=== PATIENT | male | born 1955 | race Caucasian/White ===

== ENCOUNTER 2016-12-21 07:01 | Observation (INO) | payer OTHER ==
[2016-12-21] VITALS (12 sets, daily range): BP systolic 153–209; BP diastolic 82–100; PULSE 71–85; RESP 16–19; TEMP 97.8–98.5; O2SAT 95–98
[~2016-12-21] VITALS: Ht 160 cm; Wt 91.0 kg
[2016-12-21] MEDS ORDERED: SODIUM CHLORIDE 0.9% FLUSH 10 ML FLUSH IVF PRN (07:30)
[2016-12-21 07:45] LABS: BASOPHIL % 0.4 % (0.0-2.0); EOSINOPHIL # 0.1 TH/MM3 (0-0.4); EOSINOPHIL % 1.2 % (0.0-4.0); HEMATOCRIT 45.8 % (39.0-51.0); HEMO FLAGS DIFF FINAL; LYMPH % 14.8 % (9.0-44.0); LYMPHOCYTE # 1.4 TH/MM3 (1.0-4.8); MEAN CELL VOLUME 88.5 FL (80.0-100.0); MEAN CORPUSCULAR HEMOGLOBIN 31.1 PG (27.0-34.0); MEAN CORPUSCULAR HGB CONC 35.2 % (32.0-36.0); MONO % 6.9 % (0.0-8.0); NEUT % 76.7 % (16.0-70.0); PLATELET COUNT 229 TH/MM3 (150-450); RED BLOOD COUNT 5.18 MIL/MM3 (4.50-5.90); RED CELL DISTRIBUTION WIDTH 13.4 % (11.6-17.2); WHITE BLOOD COUNT 9.2 TH/MM3 (4.0-11.0)
[2016-12-21 07:52] LABS: APTT (PATIENT) 23.3 SEC (24.3-30.1); PROTHROMBIN TIME - PATIENT 10.7 SEC (9.8-11.6)
[2016-12-21 07:54] LABS: ALT (GPT) 56 U/L (12-78); ANION GAP 8 MEQ/L (5-15); AST (GOT) 22 U/L (15-37); BICARBONATE 26.4 MEQ/L (21.0-32.0); BLOOD UREA NITROGEN 18 MG/DL (7-18); CHLORIDE 107 MEQ/L (98-107); GLOMERULAR FILTRATION RATE 57 ML/MIN (>89); POTASSIUM 3.5 MEQ/L (3.5-5.1); SODIUM (NA) 141 MEQ/L (136-145)
[2016-12-21 07:58] LABS: ALKALINE PHOSPHATASE 53 U/L (45-117); CREATINE KINASE 142 U/L (39-308); TOTAL BILIRUBIN ADULT 0.6 MG/DL (0.2-1.0)
--- NOTE | 2016-12-21 08:04 | RADRPT ---
EXAM DATE/TIME: 12/21/2016 07:35 [facility] COMPARISON: No previous studies available for comparison. INDICATIONS : Right sided arm and leg weakness RADIATION DOSE: 56.35 CTDIvol (mGy) MEDICAL HISTORY : None SURGICAL HISTORY : None. ENCOUNTER: Initial ACUITY: 1 day PAIN SCALE: 0/10 LOCATION: cranial TECHNIQUE: Multiple contiguous axial images were obtained of the head. Using automated exposure control and adj ustment of the mA and/or kV according to patient size, radiation dose was kept as low as reasonably a chievable to obtain optimal diagnostic quality images. DICOM format image data is available electro nically for review and comparison. FINDINGS: CEREBRUM: The ventricles are normal for age. No evidence of midline shift, mass lesion, hemorrhage or acute in farction. No extra-axial fluid collections are seen. POSTERIOR FOSSA: The cerebellum and brainstem are intact. The 4th ventricle is midline. The cerebellopontine angle i s unremarkable. EXTRACRANIAL: The visualized portion of the orbits is intact. SKULL: The calvaria is intact. No evidence of skull fracture. CONCLUSION: 1. No evidence of acute intracranial pathology. No masses are identified. Juan Pablo Mcfarland MD on December 21, 2016 at 7:59 Board Certified Radiologist. This report was verified electronically.
[2016-12-21] MEDS ORDERED: ASPIRIN 325 MG TAB PO ONE (08:15)
--- NOTE | 2016-12-21 08:25 | RADRPT ---
EXAM DATE/TIME: 12/21/2016 08:14 [facility] COMPARISON: No previous studies available for comparison. INDICATIONS : Shortness of breath and right sided weakness. MEDICAL HISTORY : Hypertension. SURGICAL HISTORY : None. ENCOUNTER: Initial ACUITY: 1 day PAIN SCORE: 0/10 LOCATION: Bilateral chest FINDINGS: A single view of the chest demonstrates the lungs to be symmetrically aerated without evidence of mas s, infiltrate or effusion. The cardiomediastinal contours are unremarkable. Osseous structures are intact. CONCLUSION: 1. No acute cardiopulmonary disease. Juan Pablo Mcfarland MD on December 21, 2016 at 8:23 Board Certified Radiologist. This report was verified electronically.
[2016-12-21] MEDS ORDERED: SODIUM CHLOR 0.9% 1000 ML INJ 1,000 ML IV SCH (09:11)
[2016-12-21] MEDS ORDERED: SODIUM CHLORIDE 0.9% FLUSH 10 ML FLUSH IV FLUSH PRN (09:15)
[2016-12-21] MEDS ORDERED: 1/2 NS + KCL 20 MEQ INJ 1,000 ML IV SCH (09:15)
[2016-12-21] MEDS ORDERED: ONDANSETRON HCL 4 MG/2 ML VIAL IVP PRN (09:15)
[2016-12-21] MEDS ORDERED: ACETAMINOPHEN 325 MG TAB PO PRN (09:15)
[2016-12-21] MEDS ORDERED: NALOXONE HCL 0.4 MG/ML AMP IV PUSH PRN (09:15)
[2016-12-21] MEDS ORDERED: MAGNESIUM HYDROXIDE SUSP 30 ML CUP PO PRN (09:15)
[2016-12-21] MEDS ORDERED: BISACODYL 10 MG SUPP RECTAL PRN (09:15)
--- NOTE | 2016-12-21 09:55 | HHI.HP ---
HPI Service [facility] Primary Care Physician Dr. Brian Snow Admission Diagnosis TIA Chief Complaint: Right sided weakness Travel History International Travel<30 Days: No Contact w/Intl Traveler <30 Da: No Traveled to Known Affected Are: No History of Present Illness This is a 60-year-old patient with a past medical history which includes hypertension resolved after weight loss no longer on medication. Patient reports he has not yet met his PCP Dr. Brian Snow and in fact has not been to a doctor, "in awhile." Patient reports he was in his normal state of health this morning despite her chest is normal. Once patient was at work he began to home right sided weakness causing him to fall. Patient denies head trauma or LOC. Right sided weakness lasted approximately 30 mins then spontaneously resolved. Patient has no residual symptoms at this time. Patient denies headache, slurred speech, facial droop, changes in vision, chest pain, shortness of breath, N/V, constipation, diarrhea, fevers or chills. Review of Systems Constitutional: DENIES: Fatigue, Fever, Chills Eyes: DENIES: Blurred vision, Diplopia, Vision loss Respiratory: DENIES: Cough, Sputum production, Shortness of breath Cardiovascular: DENIES: Chest pain, Palpitations, Dyspnea on Exertion, Lower Extremity Edema Gastrointestinal: DENIES: Abdominal pain, Constipation, Diarrhea Neurologic: COMPLAINS OF: Abnormal gait, Localized weakness, Poor Balance, DENIES: Headache, Seizures, Speech Problems Psychiatric: DENIES: Anxiety, Confusion, Depression Past Family Social History Past Medical History hypertension resolved after weight loss no longer on medication Past Surgical History denies prior surgery Reported Medications Does not take home medications Allergies: Coded Allergies: No Known Allergies (Unverified , 12/21/16) Active Ordered Medications Current Medications Medications (Trade) Dose Ordered Sig/Mariaelena Route Start Time Stop Time Status Last Admin (NS Flush) 2 ml UNSCH PRN IVF 12/21/16 07:30 12/21/16 07:33 Sodium Chloride 1,000 ml @ 100 mls/hr Q10H IV 12/21/16 09:11 UNV (NS Flush) 2 ml UNSCH PRN IV FLUSH 12/21/16 09:15 UNV (NS Flush) 2 ml BID IV FLUSH 12/21/16 21:00 UNV (Tylenol) 650 mg Q4H PRN PO 12/21/16 09:15 UNV (Zofran Inj) 4 mg Q6H PRN IVP 12/21/16 09:15 UNV (Narcan Inj) 0.4 mg UNSCH PRN IV PUSH 12/21/16 09:15 UNV (Sabra-Colace) 1 tab BID PO 12/21/16 21:00 UNV (Milk Of Magnesia Liq) 30 ml Q12H PRN PO 12/21/16 09:15 UNV (Dulcolax Supp) 10 mg DAILY PRN RECTAL 12/21/16 09:15 UNV Potassium Chloride/Sodium Chloride 1,000 ml @ 70 mls/hr [id number] IV 12/21/16 09:15 UNV (Aspirin) 325 mg DAILY PO 12/22/16 09:00 UNV Family History Mother and father are both alive in their 80s, father has BPH and hypertension. Patient denies family medical history including diabetes CVA or heart disease Social History Lives with his mother and father are in the 80s Denies ETOH use Denies tobacco use now or in the past Denies illicit drug use Physical Exam Vital Signs Vital Signs Date Time Temp Pulse Resp B/P (MAP) Pulse Ox O2 Delivery O2 Flow Rate FiO2 12/21/16 07:28 76 17 178/97 (124) 98 Room Air 12/21/16 07:27 17 98 Room Air 12/21/16 07:18 84 18 98 Room Air 12/21/16 07:11 98.1 84 17 204/100 (134) 97 Physical Exam GENERAL: This is a well-nourished, well-developed patient, in no apparent distress. SKIN: small abrasion right lower extremity HEAD: Atraumatic. Normocephalic. No temporal or scalp tenderness. EYES: Extraocular motions intact. No scleral icterus. No injection or drainage. ENT: Nose without bleeding, purulent drainage or septal hematoma. Throat without erythema, tonsillar hypertrophy or exudate. Uvula midline. Airway patent. NECK: Trachea midline. No JVD or lymphadenopathy. Supple, nontender, no meningeal signs. CARDIOVASCULAR: Regular rate and rhythm, with murmur present 2/6. Right carotid bruit noted RESPIRATORY: Clear to auscultation. Breath sounds equal bilaterally. No wheezes , rales, or rhonchi. GASTROINTESTINAL: Abdomen soft, non-tender, nondistended. No hepato-splenomegaly , or palpable masses. No guarding. MUSCULOSKELETAL: Extremities without clubbing, cyanosis, or edema. No joint tenderness, effusion, or edema noted. No calf tenderness. Negative Homans sign bilaterally. NEUROLOGICAL: Awake and alert. Cranial nerves II through XII intact. No focal deficits at this time. Motor and sensory grossly within normal limits. Five out of 5 muscle strength in all muscle groups. Normal speech. Laboratory Laboratory Tests Test 12/21/16 07:20 White Blood Count 9.2 Red Blood Count 5.18 Hemoglobin 16.1 Hematocrit 45.8 Mean Corpuscular Volume 88.5 Mean Corpuscular Hemoglobin 31.1 Mean Corpuscular Hemoglobin Concent 35.2 Red Cell Distribution Width 13.4 Platelet Count 229 Mean Platelet Volume 8.0 Neutrophils (%) (Auto) 76.7 Lymphocytes (%) (Auto) 14.8 Monocytes (%) (Auto) 6.9 Eosinophils (%) (Auto) 1.2 Basophils (%) (Auto) 0.4 Neutrophils # (Auto) 7.0 Lymphocytes # (Auto) 1.4 Monocytes # (Auto) 0.6 Eosinophils # (Auto) 0.1 Basophils # (Auto) 0.0 CBC Comment DIFF FINAL Differential Comment Prothrombin Time 10.7 Prothromb Time International Ratio 1.0 Activated Partial Thromboplast Time 23.3 Blood Urea Nitrogen 18 Creatinine 1.27 Random Glucose 114 Total Protein 7.3 Albumin 3.7 Calcium Level 8.5 Alkaline Phosphatase 53 Aspartate Amino Transf (AST/SGOT) 22 Alanine Aminotransferase (ALT/SGPT) 56 Total Bilirubin 0.6 Sodium Level 141 Potassium Level 3.5 Chloride Level 107 Carbon Dioxide Level 26.4 Anion Gap 8 Estimat Glomerular Filtration Rate 57 Total Creatine Kinase 142 Troponin I LESS THAN 0.02 Result Diagram: 12/21/1671912/21/16719 Caprini VTE Risk Assessment Caprini VTE Risk Assessment: No/Low Risk (score <= 1) Caprini Risk Assessment Model Point Value = 1 Point Value = 2 Point Value = 3 Point Value = 5 Age 41-60 Minor surgery BMI > 25 kg/m2 Swollen legs Varicose veins or History of unexplained or recurrent spontaneous Oral contraceptives or hormone replacement Sepsis (< 1 month) Serious lung disease, including pneumonia (< 1 month) Abnormal pulmonary function Acute myocardial infarction Congestive heart failure (< 1 month) History of inflammatory bowel disease Medical patient at bed rest Age 61-74 Arthroscopic surgery Major open surgery (> 45 min) Laparoscopic surgery (> 45 min) Malignancy Confined to bed (> 72 hours) Immobilizing plaster cast Central venous access Age >= 75 History of VTE Family history of VTE Factor V Leiden Prothrombin [id number] Lupus anticoagulant Anticardiolipin antibodies Elevated serum homocysteine Heparin-induced thrombocytopenia Other congenital or acquired thrombophilia Stroke (< 1 month) Elective arthroplasty Hip, pelvis, or leg fracture Acute spinal cord injury (< 1 month) Prophylaxis Regimen Total Risk Factor Score Risk Level Prophylaxis Regimen 0-1 Low Early ambulation 2 Moderate Order ONE of the following: *Sequential Compression Device (SCD) *Heparin 5000 units SQ BID 3-4 Higher Order ONE of the following medications: *Heparin 5000 units SQ TID *Enoxaparin/Lovenox 40 mg SQ daily (WT < 150 kg, CrCl > 30 mL/min) *Enoxaparin/Lovenox 30 mg SQ daily (WT < 150 kg, CrCl > 10-29 mL/min) *Enoxaparin/Lovenox 30 mg SQ BID (WT < 150 kg, CrCl > 30 mL/min) AND/OR *Sequential Compression Device (SCD) 5 or more Highest Order ONE of the following medications: *Heparin 5000 units SQ TID (Preferred with Epidurals) *Enoxaparin/Lovenox 40 mg SQ daily (WT < 150 kg, CrCl > 30 mL/min) *Enoxaparin/Lovenox 30 mg SQ daily (WT < 150 kg, CrCl > 10-29 mL/min) *Enoxaparin/Lovenox 30 mg SQ BID (WT < 150 kg, CrCl > 30 mL/min) AND *Sequential Compression Device (SCD) Assessment and Plan Problem List: (1) Unilateral weakness ICD Codes: R53.1 - Weakness Plan: Unilateral weakness TIA vs CVA 61-year-old male patient with remote history of hypertension no longer on medication right-sided weakness which lasted for 30 minutes and has resolved CT of the chest reviewed and reveals no evidence of acute intracranial pathology Aspirin 325 mg given in emergency department will continue daily Ultrasound bilateral carotid arteries ordered and pending Bedrest for today Permissive hypertension up to 220/110 initially- MRI reviewed and reveals no evidence of acute intracranial pathology. No masses are identified, old lacunar infarct in the brainstem Will start to control BP - Start Lisinopril 10 mg BID Clonidine PRN IV fluids one half normal saline with 20 of K at 74 hour- DC'd continuous telemetry monitoring Serial neuro checks PT consult Lipid profile in a.m. Hypertension patient has remote history of hypertension on medication Initial blood pressure 204/100 Allow permissive hypertension up to 220/110 monitor blood pressure DVT prophylaxis with SCDs (2) TIA (transient ischemic attack) ICD Codes: G45.9 - Transient cerebral ischemic attack, unspecified (3) HTN (hypertension) ICD Codes: I10 - Essential (primary) hypertension Assessment and Plan Patient examined. Assessment and plan formulated with Fernanda Adams PA-C. I agree with the above. presented with TIA sx's and sudden ride sided weakness that resolved spontaneously. severe htn on presentation. not treated and not checked for many years. mri/a negative for acute cva and carotid u/s no obstruction echo and telemetry overnight. start bp meds and titrate. ASA started. will need close f/u. Fernanda Adams Dec 21, 2016 09:55 Gt Wren MD Dec 21, 2016 18:04
--- NOTE | 2016-12-21 10:05 | PD ---
HPI Chief Complaint: Fall Time Seen by Provider: 07:19 Travel History International Travel<30 days: No Contact w/Intl Traveler<30days: No Traveled to known affect area: No History of Present Illness HPI 61-year-old male patient presents to the ER today because he states that he went to work and started not feeling well, dizzy, weak, had right sided weakness and fell to the right side. He states he had trouble using the right side for some time but he states that the symptoms are now clear. He denies any headaches, vomiting, chest pains, shortness of breath, or any other symptoms. He denies any previous issues at this. Modifying Factors: None Associated Signs & Symptoms: Right sided weakness, dizziness, weak, fall Risk Factors: None PFSH Past Medical History Medical History: Denies Significant Hx Diminished Hearing: No Tetanus Vaccination: > 5 Years Influenza Vaccination: No Past Surgical History Surgical History: No Previous Surgery Family History Family Myocardial Infarction: Yes Social History Alcohol Use: No Tobacco Use: No Substance Use: No Allergies-Medications (Allergen,Severity, Reaction): Coded Allergies: No Known Allergies (Unverified , 12/21/16) Reported Meds & Prescriptions Reported Meds & Active Scripts Active No Active Prescriptions or Reported Medications Review of Systems Except as stated in HPI: all other systems reviewed are Neg Physical Exam Narrative GENERAL: Well-developed elderly white male patient currently in mild distress. Awake and oriented 3. SKIN: Focused skin assessment warm/dry. HEAD: Atraumatic. Normocephalic. EYES: Pupils equal and round. No scleral icterus. No injection or drainage. ENT: No nasal bleeding or discharge. Mucous membranes pink and moist. NECK: Trachea midline. No JVD. CARDIOVASCULAR: Regular rate and rhythm. No murmur appreciated. RESPIRATORY: No accessory muscle use. Clear to auscultation. Breath sounds equal bilaterally. GASTROINTESTINAL: Abdomen soft, non-tender, nondistended. Hepatic and splenic margins not palpable. MUSCULOSKELETAL: No obvious deformities. No clubbing. No cyanosis. No edema. NEUROLOGICAL: Awake and alert. No obvious cranial nerve deficits. Motor grossly within normal limits. Normal speech. No pronator drift. PSYCHIATRIC: Appropriate mood and affect; insight and judgment normal. Data Data Last Documented VS Vital Signs Date Time Temp Pulse Resp B/P (MAP) Pulse Ox O2 Delivery O2 Flow Rate FiO2 12/21/16 07:28 76 17 178/97 (124) 98 Room Air 12/21/16 07:11 98.1 Orders Orders Electrocardiogram (12/21/16 07:19) Prothrombin Time / Inr (Pt) (12/21/16 07:19) Act Partial Throm Time (Ptt) (12/21/16 07:19) Complete Blood Count With Diff (12/21/16 07:19) Comprehensive Metabolic Panel (12/21/16 07:19) Creatine Kinase (Cpk) (12/21/16 07:19) Drug Screen, Random Urine (12/21/16 07:19) Troponin I (12/21/16 07:19) Urinalysis - C+S If Indicated (12/21/16 07:19) Ct Brain W/O Iv Contrast(Rout) (12/21/16 07:19) Chest, Single Ap (12/21/16 07:19) Ecg Monitoring (12/21/16 07:19) Iv Access Insert/Monitor (12/21/16 07:19) Oximetry (12/21/16 07:19) Sodium Chloride 0.9% Flush (Ns Flush) (12/21/16 07:30) Aspirin (Aspirin) (12/21/16 08:15) Admit Order (Ed Use Only) (12/21/16 08:42) Labs Laboratory Tests Test 12/21/16 07:20 White Blood Count 9.2 TH/MM3 Red Blood Count 5.18 MIL/MM3 Hemoglobin 16.1 GM/DL Hematocrit 45.8 % Mean Corpuscular Volume 88.5 FL Mean Corpuscular Hemoglobin 31.1 PG Mean Corpuscular Hemoglobin Concent 35.2 % Red Cell Distribution Width 13.4 % Platelet Count 229 TH/MM3 Mean Platelet Volume 8.0 FL Neutrophils (%) (Auto) 76.7 % Lymphocytes (%) (Auto) 14.8 % Monocytes (%) (Auto) 6.9 % Eosinophils (%) (Auto) 1.2 % Basophils (%) (Auto) 0.4 % Neutrophils # (Auto) 7.0 TH/MM3 Lymphocytes # (Auto) 1.4 TH/MM3 Monocytes # (Auto) 0.6 TH/MM3 Eosinophils # (Auto) 0.1 TH/MM3 Basophils # (Auto) 0.0 TH/MM3 CBC Comment DIFF FINAL Differential Comment Prothrombin Time 10.7 SEC Prothromb Time International Ratio 1.0 RATIO Activated Partial Thromboplast Time 23.3 SEC Blood Urea Nitrogen 18 MG/DL Creatinine 1.27 MG/DL Random Glucose 114 MG/DL Total Protein 7.3 GM/DL Albumin 3.7 GM/DL Calcium Level 8.5 MG/DL Alkaline Phosphatase 53 U/L Aspartate Amino Transf (AST/SGOT) 22 U/L Alanine Aminotransferase (ALT/SGPT) 56 U/L Total Bilirubin 0.6 MG/DL Sodium Level 141 MEQ/L Potassium Level 3.5 MEQ/L Chloride Level 107 MEQ/L Carbon Dioxide Level 26.4 MEQ/L Anion Gap 8 MEQ/L Estimat Glomerular Filtration Rate 57 ML/MIN Total Creatine Kinase 142 U/L Troponin I LESS THAN 0.02 NG/ML [facility] Medical Decision Making Medical Screen Exam Complete: Yes Emergency Medical Condition: Yes Medical Record Reviewed: Yes Interpretation(s) EKG shows NSR, no ST elevation or depression, and no arrhythmias. No significant T-wave inversions. Laboratory Tests Test 12/21/16 07:20 Neutrophils (%) (Auto) 76.7 % (16.0-70.0) Activated Partial Thromboplast Time 23.3 SEC (24.3-30.1) Random Glucose 114 MG/DL (74-106) Estimat Glomerular Filtration Rate 57 ML/MIN (>89) Troponin I LESS THAN 0.02 NG/ML Differential Diagnosis TIA versus metabolic issues versus intracranial injuries versus dysrhythmias Narrative Course Vital signs are stable in the ER except for hypertension. His blood pressure came down on its own. His EKG did not show significant signs of dysrhythmias. Metabolic panel is unremarkable. Patient's neurological symptoms have completely resolved by the time they're in the ER. CAT scan returns not show any signs of acute intracranial issues and aspirin was given in the ER. Case was then discussed with Dr. Wren for admission. Diagnosis Primary Impression: TIA (transient ischemic attack) Additional Impressions: Unilateral weakness HTN (hypertension) Admitting Information Admitting Physician Requests: Admit Scripts No Active Prescriptions or Reported Meds Bereket Phan MD Dec 21, 2016 10:05
--- NOTE | 2016-12-21 10:37 | RADRPT ---
EXAM DATE/TIME: 12/21/2016 09:56 [facility] COMPARISON: No previous studies available for comparison. INDICATIONS : Transient ischemic attack. MEDICAL HISTORY : Transient ischemic attack. SURGICAL HISTORY : None. ENCOUNTER: Initial ACUITY: 1 day PAIN SCORE: 2/10 LOCATION: Bilateral neck PEAK SYSTOLIC VELOCITIES (cm/sec): ICA/CCA RATIO: Right: 1.0 Left: 1.1 ICA: Right: 86 Left: 98 CCA: Right: 87 Left: 89 ECA: Right: 91 Left: 97 VERTEBRAL: Right: 76 antegrade Left: 56 antegrade Elevated flow velocities and ICA/CCA ratios have been found to correlate with increased degrees of vessel stenosis, calculated as percentage of diameter relative to a normal segment of distal ICA/CCA FINDINGS: Ultrasound of the carotid arteries was performed bilaterally using real-time Doppler and color Dopple r imaging. Examination of the right carotid artery demonstrates mild fibrous plaque within the bifurcation. No w aveform abnormalities are identified and no spectral broadening is seen. Examination of the left simental tid artery demonstrates mild fibrous plaque within the bulb. No waveform abnormalities are identified and no spectral broadening is seen. There is antegrade flow in both vertebral arteries. CONCLUSION: No evidence of hemodynamically significant lesion. Juan Pablo Mcfarland MD on December 21, 2016 at 10:35 Board Certified Radiologist. This report was verified electronically.
--- NOTE | 2016-12-21 14:11 | RADRPT ---
EXAM DATE/TIME: 12/21/2016 13:44 [facility] COMPARISON: No previous studies available for comparison. INDICATIONS : CVA. Right sided weakness for one day. Syncopal episode today. MEDICAL HISTORY : None. SURGICAL HISTORY : None. ENCOUNTER: Initial ACUITY: 1 day PAIN SCORE: 0/10 LOCATION: cranial TECHNIQUE: Multiplanar, multisequence MRI of the brain was performed without contrast. FINDINGS: MRI of the brain is performed in sagittal, axial and coronal planes. The craniocervical junction and midline structures are unremarkable. Diffusion weighted images demonstrate no abnormality. There is n o evidence of acute cortical infarction, acute hemorrhage, mass effect or midline shift is seen. Ther e is periventricular hyperintensity on the T2 weighted images consistent with small vessel vascular d isease slightly more than expected in a patient of this age. There is a small old lacunar infarct inv olving the angel at the level of the superior cerebellar peduncle Posterior fossa structures are unrem arkable. CONCLUSION: 1. No evidence of acute intracranial pathology. No masses are identified. Old lacunar infarct in the brainstem Juan Pablo Mcfarland MD on December 21, 2016 at 14:09 Board Certified Radiologist. This report was verified electronically.
--- NOTE | 2016-12-21 14:16 | RADRPT ---
EXAM DATE/TIME: 12/21/2016 13:44 [facility] COMPARISON: MRI BRAIN W/O CONTRAST, December 21, 2016, 13:44. INDICATIONS : CVA. Right sided weakness for one day. Syncopal episode today. MEDICAL HISTORY : None. SURGICAL HISTORY : None. ENCOUNTER: Initial ACUITY: 1 day PAIN SCORE: 0/10 LOCATION: cranial Please note a normal MRA of the brain does not entirely exclude the possibility of a small aneurysm, nor the possibility of distal intracranial vessel disease. TECHNIQUE: 3D time of flight MRA was performed. Source images, multiplanar STS MIP, and 3D volume MIP reconstru ctions were reviewed. FINDINGS: Anterior circulation: Distal intracranial internal carotid arteries are patent with flow extending to the middle and anteri or cerebral arteries. There is no evidence for aneurysm, vessel truncation or stenosis, and no eviden ce for vascular malformation. Posterior circulation: Symmetric distal vertebral arteries with flow extending to basilar artery. Hypoplastic/aplastic P-co mms. There is no evidence for aneurysm, vessel truncation or stenosis, and no evidence for vascular m alformation. CONCLUSION: 1. Unremarkable MRA examination of the head. Specifically no evidence for large vessel occlusion or s ignificant stenosis, as questioned. Ulisses Fuentes MD on December 21, 2016 at 14:11 Board Certified Radiologist. This report was verified electronically.
--- NOTE | 2016-12-21 16:44 | ECHRPT ---
Indication: CVA/TIA CONCLUSIONS Normal left ventricular size. Mild concentric left ventricular hypertrophy. The left ventricular systolic function is hyperdynamic with an estimated ejection fraction in the ra nge of 65- 70%. There is trace tricuspid valve regurgitation. Normal estimated pulmonary pressures. BP: / HR: Rhythm: Sinus MEASUREMENTS (Male / Female) Normal Values Technical Quality:Fair 2D ECHO LV Diastolic Diameter PLAX 5.2 cm 4.2 - 5.9 / 3.9 - 5.3 cm LV Systolic Diameter PLAX 3.7 cm IVS Diastolic Thickness 1.0 cm 0.6 - 1.0 / 0.6 - 0.9 cm LVPW Diastolic Thickness 1.0 cm 0.6 - 1.0 / 0.6 - 0.9 cm LV Relative Wall Thickness 0.4 LVOT Diameter 1.7 cm Aortic Root Diameter 2.5 cm M-MODE AV Cusp Separation MM 2.2 cm DOPPLER AV Peak Velocity 121.0 cm/s AV Peak Gradient 5.9 mmHg AV Mean Gradient 3.0 mmHg AV Velocity Time Integral 20.4 cm LVOT Peak Velocity 108.0 cm/s LVOT Peak Gradient 4.7 mmHg LVOT Velocity Time Integral 20.4 cm AV Area Cont Eq vti 2.3 cm AV Area Cont Eq pk 2.0 cm Mitral E Point Velocity 62.7 cm/s Mitral A Point Velocity 44.9 cm/s Mitral E to A Ratio 1.4 LV E' Lateral Velocity 7.1 cm/s Mitral E to LV E' Lateral Ratio 8.8 LV E' Septal Velocity 5.9 cm/s Mitral E to LV E' Septal Ratio 10.5 TR Peak Velocity 225.0 cm/s TR Peak Gradient 20.3 mmHg Right Atrial Pressure 10.0 mmHg Pulmonary Artery Systolic Pressu 30.3 mmHg Right Ventricular Systolic Press 30.3 mmHg PV Peak Velocity 63.9 cm/s PV Peak Gradient 1.6 mmHg FINDINGS LEFT VENTRICLE Normal left ventricular size. Mild concentric left ventricular hypertrophy. The left ventricular systolic function is hyperdynamic with an estimated ejection fraction in the ra nge of 65- 70%. TRICUSPID VALVE There is trace tricuspid valve regurgitation. Normal estimated pulmonary pressures. Brendan Park MD (Electronically Signed) Final Date:21 December 2016 16:43
[2016-12-21] MEDS ORDERED: cloNIDine HCL 0.1 MG TAB PO PRN (16:45)
[2016-12-21] MEDS: LISINOPRIL 10 MG TAB PO SCH (17:46)
--- NOTE | 2016-12-21 19:21 | EKG ---
Date Performed: 12/21/2016 Time Performed: 07:10:06 PTAGE: 61 years EKG: Sinus rhythm SEPTAL MYOCARDIAL INFARCTION ABNORMAL ECG NO PREVIOUS TRACING DOCTOR: Lars Aguirre Interpretating Date/Time 12/21/2016 19:19:57
[2016-12-21] MEDS: DOCUSATE SODIUM 50 MG/SENNA 8.6 MG TAB PO SCH (21:00)
[2016-12-21] MEDS ORDERED: LISINOPRIL 10 MG TAB PO SCH (21:00)
[2016-12-21] MEDS: SODIUM CHLORIDE 0.9% FLUSH 10 ML FLUSH IV FLUSH SCH (21:01)
[2016-12-22] VITALS (7 sets, daily range): BP systolic 161–170; BP diastolic 83–89; PULSE 66–83; RESP 18–19; TEMP 98.2–98.4; O2SAT 95–96
[2016-12-22] MEDS: LISINOPRIL 10 MG TAB PO SCH (08:29)
[2016-12-22] MEDS: DOCUSATE SODIUM 50 MG/SENNA 8.6 MG TAB PO SCH (08:30)
[2016-12-22] MEDS: SODIUM CHLORIDE 0.9% FLUSH 10 ML FLUSH IV FLUSH SCH (08:30)
[2016-12-22] MEDS ORDERED: ASPIRIN 325 MG TAB PO SCH (09:00)
--- NOTE | 2016-12-22 09:05 | HHI.PR ---
Subjective Remarks Patient awake and alert, reports he had an uneventful night offers no specific complaints Objective Vitals Vital Signs Date Time Temp Pulse Resp B/P (MAP) Pulse Ox O2 Delivery O2 Flow Rate FiO2 12/22/16 07:43 98.3 68 18 170/83 (112) 96 12/22/16 07:37 96 21 12/22/16 05:06 21 12/22/16 04:00 72 12/22/16 03:51 98.2 71 18 161/85 (110) 96 12/22/16 00:00 66 12/21/16 23:30 98.2 71 18 153/82 (105) 95 12/21/16 20:52 178/88 (118) 170/88 (115) 12/21/16 20:10 83 12/21/16 19:24 98.3 85 18 209/91 (130) 97 12/21/16 16:28 98.5 78 19 197/96 (129) 97 12/21/16 15:35 97.8 78 17 184/93 (123) 98 12/21/16 12:26 97.8 80 16 186/92 (123) 98 Room Air 12/21/16 10:58 97.8 72 17 183/94 (123) 98 Room Air 12/21/16 09:39 97.8 82 17 196/96 (129) 98 Room Air Result Diagram: 12/21/16 0720 12/21/16 0720 Other Results Laboratory Tests Test 12/21/16 07:20 White Blood Count 9.2 TH/MM3 Red Blood Count 5.18 MIL/MM3 Hemoglobin 16.1 GM/DL Hematocrit 45.8 % Mean Corpuscular Volume 88.5 FL Mean Corpuscular Hemoglobin 31.1 PG Mean Corpuscular Hemoglobin Concent 35.2 % Red Cell Distribution Width 13.4 % Platelet Count 229 TH/MM3 Mean Platelet Volume 8.0 FL Neutrophils (%) (Auto) 76.7 % Lymphocytes (%) (Auto) 14.8 % Monocytes (%) (Auto) 6.9 % Eosinophils (%) (Auto) 1.2 % Basophils (%) (Auto) 0.4 % Neutrophils # (Auto) 7.0 TH/MM3 Lymphocytes # (Auto) 1.4 TH/MM3 Monocytes # (Auto) 0.6 TH/MM3 Eosinophils # (Auto) 0.1 TH/MM3 Basophils # (Auto) 0.0 TH/MM3 CBC Comment DIFF FINAL Differential Comment Prothrombin Time 10.7 SEC Prothromb Time International Ratio 1.0 RATIO Activated Partial Thromboplast Time 23.3 SEC Blood Urea Nitrogen 18 MG/DL Creatinine 1.27 MG/DL Random Glucose 114 MG/DL Total Protein 7.3 GM/DL Albumin 3.7 GM/DL Calcium Level 8.5 MG/DL Alkaline Phosphatase 53 U/L Aspartate Amino Transf (AST/SGOT) 22 U/L Alanine Aminotransferase (ALT/SGPT) 56 U/L Total Bilirubin 0.6 MG/DL Sodium Level 141 MEQ/L Potassium Level 3.5 MEQ/L Chloride Level 107 MEQ/L Carbon Dioxide Level 26.4 MEQ/L Anion Gap 8 MEQ/L Estimat Glomerular Filtration Rate 57 ML/MIN Total Creatine Kinase 142 U/L Troponin I LESS THAN 0.02 NG/ML Imaging Last Impressions Head CT 12/21/16718 Signed Impressions: Service Date/Time: Wednesday, December 21, 2016 07:35 - CONCLUSION: 1. No evidence of acute intracranial pathology. No masses are identified. Juan Pablo Mcfarland MD Chest X-Ray 12/21/16718 Signed Impressions: Service Date/Time: Wednesday, December 21, 2016 08:14 - CONCLUSION: 1. No acute cardiopulmonary disease. Juan Pablo Mcfarland MD Head Magnetic Resonance Angiography 12/21/16 Signed Impressions: Service Date/Time: Wednesday, December 21, 2016 13:44 - CONCLUSION: 1. Unremarkable MRA examination of the head. Specifically no evidence for large vessel occlusion or significant stenosis, as questioned. Ulisses Fuentes MD Carotid Artery Ultrasound 12/21/16 Signed Impressions: Service Date/Time: Wednesday, December 21, 2016 09:56 - CONCLUSION: No evidence of hemodynamically significant lesion. Juan Pablo Mcfarland MD Brain MRI 12/21/16 Signed Impressions: Service Date/Time: Wednesday, December 21, 2016 13:44 - CONCLUSION: 1. No evidence of acute intracranial pathology. No masses are identified. 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 SKIN: small abrasion right lower extremity and RUE- healing CARDIOVASCULAR: Regular rate and rhythm, with murmur present 2/6. Right carotid bruit noted RESPIRATORY: Clear to auscultation. Breath sounds equal bilaterally. No wheezes , rales, or rhonchi. GASTROINTESTINAL: Abdomen soft, non-tender, nondistended. No hepato-splenomegaly , or palpable masses. No guarding. MUSCULOSKELETAL: Extremities without clubbing, cyanosis, or edema. No joint tenderness, effusion, or edema noted. No calf tenderness. Negative Homans sign bilaterally. NEUROLOGICAL: Awake and alert. No focal deficits appreciated. No focal deficits at this time. Motor and sensory grossly within normal limits. Five out of 5 muscle strength in all muscle groups. Normal speech. A/P Problem List: (1) Unilateral weakness ICD Codes: R53.1 - Weakness Plan: Unilateral weakness TIA vs HTN urgency 61-year-old male patient with remote history of hypertension no longer on medication right-sided weakness which lasted for 30 minutes and has resolved CT of the chest reviewed and reveals no evidence of acute intracranial pathology Aspirin 325 mg given in emergency department will continue aspirin daily Ultrasound bilateral carotid arteries reviewed and reveals examination of the right coronary artery demonstrates mild fibrous plaque within the bifurcation segment of the left carotid artery demonstrates mild fibrous plaque within the bulb. No evidence of hemodynamically significant lesion Initially bedrest with head of bed flat 12/22/2016 activity changed him out of bed with assistance Permissive hypertension up to 220/110 initially- MRI reviewed and reveals no evidence of acute intracranial pathology. No masses are identified, old lacunar infarct in the brainstem control BP - continue Lisinopril 10 mg BID Clonidine PRN IV fluids one half normal saline with 20 of K at 74 hour- DC'd continuous telemetry monitoring reviewed no events noted Serial neuro checks Evaluation by physical therapy recommends home with no home health physical therapy Lipid profile pending Hypertension patient has remote history of hypertension on medication Initial blood pressure 204/100 control BP - continue Lisinopril 10 mg BID Clonidine PRN monitor blood pressure DVT prophylaxis with SCDs DC patient home in stable condition on a heart healthy diet to follow up with PCP. Prescription given for Lisinopril 20 mg PO BID and aspirin 81 mg daily (2) TIA (transient ischemic attack) ICD Codes: G45.9 - Transient cerebral ischemic attack, unspecified (3) HTN (hypertension) ICD Codes: I10 - Essential (primary) hypertension Assessment and Plan Patient examined. Assessment and plan formulated with Fernanda Adams PA-C. I agree with the above. TIA sx with severe htn urgency. No evidence of afib or acute cva on imaging. Pt sx's resolved prior to arrival titrate bp meds. asa. he want to go home. f/u pcp. echo no thrombus noted. Fernanda Adams Dec 22, 2016 09:05 Gt Wren MD Dec 22, 2016 14:49
[2016-12-22] MEDS ORDERED: LISI-515 PO (09:07)
[2016-12-22] MEDS ORDERED: ASPI81TA11 PO (09:07)
--- NOTE | 2016-12-22 09:08 | HHI.DCPOC ---
Discharge Care Plan Diagnosis: (1) Hypertensive urgency (2) Unilateral weakness Goals to Promote Your Health * To prevent worsening of your condition and complications * To maintain your health at the optimal level Directions to Meet Your Goals Take your medications as prescribed Follow your dietary instruction Follow activity as directed Keep your appointments as scheduled Take your immunizations and boosters as scheduled If your symptoms worsen call your PCP, if no PCP go to Urgent Care Center or Emergency Room Smoking is Dangerous to Your Health. Avoid second hand smoke Call the 24-hour hour crisis hotline for domestic abuse at Fernanda Adams Dec 22, 2016 09:08
[2016-12-22 10:42] LABS: AUTOMATED NEUTROPHIL # 6.3 TH/MM3 (1.8-7.7); BASOPHIL % 0.3 % (0.0-2.0); EOSINOPHIL # 0.1 TH/MM3 (0-0.4); EOSINOPHIL % 0.9 % (0.0-4.0); HEMATOCRIT 47.3 % (39.0-51.0); HEMO FLAGS DIFF FINAL; LYMPH % 16.1 % (9.0-44.0); LYMPHOCYTE # 1.4 TH/MM3 (1.0-4.8); MEAN CORPUSCULAR HEMOGLOBIN 30.9 PG (27.0-34.0); MEAN CORPUSCULAR HGB CONC 34.3 % (32.0-36.0); MONO % 7.9 % (0.0-8.0); NEUT % 74.8 % (16.0-70.0); PLATELET COUNT 228 TH/MM3 (150-450); RED BLOOD COUNT 5.25 MIL/MM3 (4.50-5.90); RED CELL DISTRIBUTION WIDTH 14.2 % (11.6-17.2); WHITE BLOOD COUNT 8.5 TH/MM3 (4.0-11.0)
[2016-12-22 11:08] LABS: ANION GAP 10 MEQ/L (5-15); BICARBONATE 24.4 MEQ/L (21.0-32.0); BLOOD UREA NITROGEN 17 MG/DL (7-18); CHLORIDE 105 MEQ/L (98-107); GLOMERULAR FILTRATION RATE 66 ML/MIN (>89); POTASSIUM 3.4 MEQ/L (3.5-5.1); SODIUM (NA) 139 MEQ/L (136-145)
[2016-12-22 11:14] LABS: HDL CHOLESTEROL 36.1 MG/DL (40.0-60.0); LDL CHOLESTEROL 97 MG/DL (0-99)
[2016-12-22] MEDS ORDERED: LISINOPRIL 20 MG TAB PO ONE (14:45)
[2016-12-22] MEDS ORDERED: POTASSIUM CHLORIDE 20 MEQ CONTROLLED RELEASE TAB PO ONE (14:45)
[2016-12-22 16:01] LABS: HEMOGLOBIN A1b 1.7 %; HEMOGLOBIN Ao 85.8 %; HEMOGLOBIN P3 4.9 %
== END 2016-12-22 15:53 | disposition home or self-care (01) ==
LOC: NEPE 07:01 → NEDA 08:45 → NEPHCDU 15:33
PROVIDERS: ADMIT Hospitalist; ATTEND Hospitalist
DX: G45.9 Transient cerebral ischemic attack, unspecified (principal); I16.0 Hypertensive urgency; R53.1 Weakness; S80.811A Abrasion, right lower leg, initial encounter; R94.31 Abnormal electrocardiogram [ECG] [EKG]; I10 Essential (primary) hypertension; W19.XXXA Unspecified fall, initial encounter
CPT/HCPCS: 70450; 70544; 70551; 71010; 80048; 80053; 80061; 82550; 82948; 83036; 84484; 85025; 85610; 85730; 93005; 93306; 93880; 96365; 97161; 99285; G0378; G8987; G8988; J7030